=== PATIENT | female | born 1980 | race African-American/Black ===

== ENCOUNTER 2017-03-06 20:48 | Emergency (ER) | payer BC ==
[2017-03-06 20:56] VITALS: BP 110/65; BMI 30.7
[2017-03-06] MEDS ORDERED: ACETAMINOPHEN 325 MG TABLET (FP) PO ONE (21:09)
[2017-03-06] MEDS ORDERED: ACETAMINOPHEN 325 MG TABLET (FP) ONE (21:17)
[2017-03-06 22:12] LABS: URINE APPEARANCE SLCLOUDY; URINE BILIRUBIN NEGATIVE (NEGATIVE); URINE BLOOD NEGATIVE (NEGATIVE); URINE COLOR YELLOW; URINE GLUCOSE (UA) NEGATIVE (NEGATIVE); URINE KETONE NEGATIVE (NEGATIVE); URINE NITRITE POSITIVE (NEGATIVE); URINE UROBILINOGEN 4.0 E.U/dl mg/dL (0.2-1.0)
[2017-03-06 22:16] LABS: URINE LEUK ESTERASE 3+ (NEGATIVE); URINE PROTEIN 1+ (NEGATIVE)
[2017-03-06 22:18] LABS: URINE BACTERIA MODERATE /hpf (NONE SEEN); URINE MUCUS RARE; URINE RBC 7 /hpf (0-3); URINE WBC 117 /hpf (3-5)
--- NOTE | 2017-03-06 22:20 | PDOC ---
History of Present Illness - General Chief Complaint: Cold Symptoms Stated Complaint: DIFFICULTY BREATHING Time Seen by Provider: 03/06/17 21:09 - History of Present Illness Initial Comments: 03/06/17 22:20 CHIEF COMPLAINT: body aches, fever HISTORY OF PRESENT ILLNESS: 36 yo F with no significant PMH presents to [facility] with fever and generalized discomfort. Patient reports urinary frequency for the past 3 days and fever that started yesterday. She denies any burning with urination but does report body aches. PAST MEDICAL HISTORY: Denies past medical history FAMILY HISTORY: Denies SOCIAL HISTORY: Denies tobacco, alcohol, illicit drug use. SURGICAL HISTORY: Denies ALLERGIES: No known drug allergies REVIEW OF SYSTEMS General/Constitutional: Fever since yesterday. Denies weakness, weight change. HEENT: Denies change in vision. Denies ear pain or discharge. Denies sore throat. Cardiovascular: Denies chest pain or shortness of breath. Respiratory: Denies cough, wheezing, or hemoptysis. Gastrointestinal: Denies nausea, vomiting, diarrhea or constipation. Denies rectal bleeding. Genitourinary: Urinary frequency x 3 days. Musculoskeletal: Denies joint or muscle swelling or pain. Denies neck or back pain. Skin: Denies rash or easy bruising. PHYSICAL EXAM General Appearance: Uncomfortable appearing, appropriately dressed. No apparent distress. HEENT: EOMI, PERRLA. No conjunctival pallor. No photophobia, scleral icterus. Respiratory/Chest: Lungs CTAB. Cardiovascular: RRR. S1, S2. Gastrointestinal/Abdominal: Normal bowel sounds. Abdomen soft, non-distended. No tenderness or rebound tenderness. No organomegaly, pulsatile mass, guarding , hernia, hepatomegaly, splenomegaly. Musculoskeletal/Extremities: B/L CVA tenderness. Normal inspection. FROM of all extremities, normal capillary refill. Pelvis Stable. No CVA tenderness. No tenderness to extremities, pedal edema, swelling, erythema or deformity. Integumentary: Appropriate color, dry, warm. No cyanosis, erythema, jaundice or rash Neurologic: traffic control specialist II-XII intact. Fully oriented, alert. Appropriate mood/affect. Motor strength 5/5. No appreciable EOM palsy, facial droop or sensory deficit. Past History - Past Medical History Allergies/Adverse Reactions: Allergies Allergy/AdvReac Type Severity Reaction Status Date / Time No Known Allergies Allergy Verified 03/06/17 20:55 Home Medications: Ambulatory Orders No Home Medications 0 dose .ROUTE UTDICT 05/10/13 Ibuprofen [Motrin -] 600 mg PO TID 03/06/17 Ibuprofen [Motrin -] 600 mg PO TID #21 tablet 03/06/17 Nitrofurantoin Monohyd/M-Cryst [Macrobid -] 100 mg PO BID #20 capsule 03/06/17 CVA: No COPD: No CHF: No DVT: No Dementia: No GI Disorders: No Disorders: No Thyroid Disease: No - Suicide/Smoking/Psychosocial Hx Smoking Status: No Smoking History: Never smoked Have you smoked in the past 12 months: No Number of Cigarettes Smoked Daily: 0 Information on smoking cessation initiated: No Hx Alcohol Use: No Drug/Substance Use Hx: No Substance Use Type: Alcohol *Physical Exam - Vital Signs Last Vital Signs Temp Pulse Resp BP Pulse Ox 100.5 F H 127 H 18 110/65 100 03/06/17 20:52 03/06/17 20:52 03/06/17 20:52 03/06/17 20:52 03/06/17 20:52 ED Treatment Course - Medications Given in the ED: ED Medications Discontinued Medications Generic Name Dose Route Start Last Admin Trade Name Freq PRN Reason Stop Dose Admin Acetaminophen 650 mg 03/06/17 21:09 03/06/17 21:18 Tylenol - PO 03/06/17 21:10 650 mg ONCE ONE Administration Medical Decision Making - Medical Decision Making 03/06/17 23:01 36 yo F with no significant PMH presents to fast track with fever and generalized discomfort. Patient febrile to 100.5F. -flu swab -UA, UCx -Tylenol UA positive for nitrites and 112 WBC. -Macrobid given here in FT Patient repeat temp 99.9F. 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 *DC/Admit/Observation/Transfer Diagnosis at time of Disposition: Urinary tract infection Qualifiers: Urinary tract infection type: site unspecified Hematuria presence: without hematuria Qualified Code(s): N39.0 - Urinary tract infection, site not specified - Discharge Dispostion Disposition: HOME Condition at time of disposition: Stable Admit: No - Prescriptions Prescriptions: Ibuprofen [Motrin -] 600 mg PO TID #21 tablet Nitrofurantoin Monohyd/M-Cryst [Macrobid -] 100 mg PO BID #20 capsule - Referrals Referrals: Lo Hines MD [Primary Care Provider] - - Patient Instructions Printed Discharge Instructions: DI for Urinary Tract Infection (UTI) Additional Instructions: Please take medications as prescribed. You MUST drink LOTS of fluids for hydration. If you develop fever that is unrelieved by Motrin, vomiting, diarrhea , or any new or worsening symptoms, please return to the ER. - Post Discharge Activity
[2017-03-06] MEDS ORDERED: NITROFURANTOIN MACROCRYSTAL 50 MG CAPSULE (FP) ONE (22:33)
[2017-03-06 22:46] VITALS: PULSE 75
[2017-03-06] MEDS ORDERED: NITROFURANTOIN MACROCRYSTAL 50 MG CAPSULE (FP) PO SCH (23:00)
[2017-03-06 23:03] VITALS: TEMP 99.9
[2017-03-07 11:43] LABS: URINE LEUK ESTERASE 1+ (NEGATIVE)
== END 2017-03-06 23:02 | disposition home or self-care (01) ==
LOC: JERFT 20:48
DX: N39.0 Urinary tract infection, site not specified (principal); B96.20 Unspecified Escherichia coli [E. coli] as the cause of diseases classified elsewhere
CPT/HCPCS: 81003; 81015; 87086; 87186; 87804; 99282-25

== ENCOUNTER 2019-05-01 10:17 | Emergency (ER) | payer BC ==
[2019-05-01 10:33] VITALS: BMI 49.1
[2019-05-01] MEDS ORDERED: SODIUM CHLORIDE 1,000 ML IV STA ×2 (11:13→12:33)
[2019-05-01] MEDS ORDERED: ACETAMINOPHEN 1000 MG/100 ML VIAL (NON FORMULARY) IVPB ONE (11:13)
--- NOTE | 2019-05-01 11:40 | PDOC ---
History of Present Illness - General Chief Complaint: Headache Stated Complaint: FEVER/COLD SYMPTOMS Time Seen by Provider: 05/01/19 11:10 History Source: Patient Exam Limitations: No Limitations - History of Present Illness Initial Comments: 05/01/19 12:12 38 yo female pmh colon CA (polyps removed) presents to the ED for 3 days of fevers, body aches, headaches and congestion. Pt states co workers with similar symptoms. Denies SOB, cough, sore throat, ear pain, CP, abdominal pain, changes in bowel or bladder habits. Past History - Past Medical History Allergies/Adverse Reactions: Allergies Allergy/AdvReac Type Severity Reaction Status Date / Time No Known Allergies Allergy Verified 05/01/19 10:26 Home Medications: Ambulatory Orders Rizatriptan Benzoate [Rizatriptan] 10 mg PO ASDIR PRN 05/01/19 levoFLOXacin [Levaquin] 750 mg PO DAILY #5 tab 05/01/19 Cancer: Yes (Colon cancer 01/30) CVA: No COPD: No CHF: No DVT: No Dementia: No GI Disorders: No Disorders: No Thyroid Disease: No - Psycho Social/Smoking Cessation Hx Smoking Status: No Smoking History: Never smoked Have you smoked in the past 12 months: No Number of Cigarettes Smoked Daily: 0 Hx Alcohol Use: No Drug/Substance Use Hx: No Substance Use Type: Alcohol Review of Systems - Review of Systems Constitutional: Yes: See HPI HEENTM: Yes: See HPI Respiratory: Yes: See HPI Cardiac (ROS): Yes: See HPI ABD/GI: Yes: See HPI : Yes: See HPI Musculoskeletal: Yes: See HPI Integumentary: Yes: See HPI Neurological: Yes: See HPI *Physical Exam - Vital Signs Last Vital Signs Temp Pulse Resp BP Pulse Ox 102.6 F H 124 H 18 107/81 100 05/01/19 10:27 05/01/19 10:27 05/01/19 10:27 05/01/19 10:27 05/01/19 10:27 - Physical Exam General Appearance: Yes: Nourished, Appropriately Dressed. No: Apparent Distress HEENT: positive: EOMI Neck: positive: Supple. negative: Carotid bruit Respiratory/Chest: positive: Lungs Clear, Normal Breath Sounds. negative: Respiratory Distress, Accessory Muscle Use, Rapid RR, Crackles, Rales, Rhonchi, Stridor, Wheezing Cardiovascular: positive: Regular Rhythm, S1, S2, Tachycardia. negative: Edema , JVD, Murmur Vascular Pulses: Dorsalis-Pedis (R): 4+, Doralis-Pedis (L): 4+ Gastrointestinal/Abdominal: positive: Flat, Soft. negative: Pulsatile Mass, Protuberent, Distended, Guarding, Rebound, Tenderness Musculoskeletal: positive: CVA Tenderness Extremity: positive: Normal Capillary Refill, Normal Inspection, Normal Range of Motion Integumentary: positive: Normal Color, Dry, Warm Neurologic: positive: Fully Oriented, Alert, Normal Mood/Affect, Normal Response ED Treatment Course - LABORATORY CBC & Chemistry Diagram: 05/01/19 11:45 05/01/19 11:45 Medical Decision Making - Medical Decision Making 05/01/19 12:24 38 yo female pmh colon CA (polyps removed) presents to the ED for 3 days of fevers, body aches, headaches and congestion. Pt states co workers with similar symptoms. Denies SOB, cough, sore throat, ear pain, CP, abdominal pain, changes in bowel or bladder habits. vitals show elevated HR and temp pt clinically has the flu and is out of the treatment window, not a high risk pt fluids and tylenol given and basic labs with UA due to CVA tenderness will reassess Discharge - Discharge Information Problems reviewed: Yes Clinical Impression/Diagnosis: Urinary tract infection Condition: Stable Disposition: HOME - Admission No - Additional Discharge Information Prescriptions: levoFLOXacin [Levaquin] 750 mg PO DAILY #5 tab - Follow up/Referral - Patient Discharge Instructions Patient Printed Discharge Instructions: DI for Kidney Infection, DI for Urinary Tract Infection (UTI) Additional Instructions: please see your primary doctor within the next 48 hours. Take the antibiotic for your UTI 1 time daily for the next 5 days. Continue taking over the counter Tylenol for fevers and make sure to increase your water intake. Return to the ER for new or concerning symptoms including but not limited to: inability to urinate, severe pain, persistent fevers, blood in the urine. Thank you - Post Discharge Activity Work/Back to School Note: Back to Work
[2019-05-01] MEDS ORDERED: ACETAMINOPHEN INJECTION 100 ML IVPB ONE (11:41)
[2019-05-01 12:13] LABS: BASO % 0.3 % (0-2.0); EOS % 0.1 % (0-4.5); HEMATOCRIT 40.6 % (32.4-45.2); HEMOGLOBIN 13.8 GM/dL (10.7-15.3); LYMPH % 8.9 % (8-40); MCH 30.6 pg (25.7-33.7); MCHC 33.9 g/dl (32.0-36.0); MEAN CELL VOLUME 90.1 fl (80-96); MEAN PLT VOLUME 7.8 fl (7.5-11.1); MONO % 7.8 % (3.8-10.2); NEUT % 82.9 % (42.8-82.8); PLATELET COUNT 272 K/MM3 (134-434); RDW 13.8 % (11.6-15.6); WHITE BLOOD COUNT 8.4 K/mm3 (4.0-10.0)
[2019-05-01 12:18] LABS: EPI CELLS 2.7 /HPF (0-5/HPF); HYALINE CASTS 15 /lpf (0-8); PH,URINE >= 9.0 (5.0-8.0); URINE APPEARANCE CLEAR; URINE BACTERIA 1685.8 /hpf (NEGATIVE); URINE BILIRUBIN NEGATIVE (NEGATIVE); URINE COLOR YELLOW; URINE GLUCOSE (UA) NEGATIVE (NEGATIVE); URINE KETONE NEGATIVE (NEGATIVE); URINE LEUK ESTERASE 1+ (NEGATIVE); URINE NITRITE POSITIVE (NEGATIVE); URINE PROTEIN 1+ (NEGATIVE); URINE RBC 9 /hpf (0-4); URINE UROBILINOGEN 4.0 E.U/dl mg/dL (0.2-1.0); URINE WBC 41 /hpf (0-5)
--- NOTE | 2019-05-01 12:22 | PDOC ---
Documentation entered by Quincy Olson SCRIBE, acting as scribe for Quang Suarez MD. Quang Suarez MD: This documentation has been prepared by the Wesley jean Xhesika, SCRIBE, under my direction and personally reviewed by me in its entirety. I confirm that the documentation accurately reflects all work, treatment, procedures, and medical decision making performed by me. Attending Attestation - Resident Resident Name: LivmatRofl - ED Attending Attestation I have performed the following: I have examined & evaluated the patient, The case was reviewed & discussed with the resident, I agree w/resident's findings & plan, Exceptions are as noted - HPI HPI: 05/05/19 10:16 see above - Physicial Exam PE: 05/05/19 10:17 see above - Medical Decision Making 05/01/19 11:43 38y F hx of possible colon ca, presents with several days of fever, headache, body aches, and mild nasal tuffiness. Patient denies any other symptoms including sore throat, cough, shortness of breath, chest pain, abdominal pain, dysuria, diarrhea. 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 exam: GENERAL: The patient is awake, alert, and fully oriented, Nontoxic - in no acute distress. HEAD: Normocephalic, atraumatic. EYES: extraocular movements intact, sclera anicteric, conjunctiva clear. ENT: Normal voice, Moist mucous membranes. NECK: Normal range of motion, supple, LUNGS: Breath sounds equal, clear to auscultation bilaterally. No wheezes, no rhonchi, no rales. HEART: tachycadic, normal S1 and S2 without murmur, rub or gallop. ABDOMEN: Soft, nontender, No guarding, no rebound. mild L cva tenderness EXTREMITIES: Normal range of motion, no edema. NEUROLOGICAL: No facial assymetry, Normal speech, PSYCH: Normal mood, normal affect. SKIN: hot to touch, Dry, normal turgor, Differential for the patient's symptoms includes possible influenza versus UTI/ pyelonephritis Will obtain UA we will give the patient antipyretic, fluids 05/01/19 12:26 pts UA suggestive of UTI labs otherwise unremarkable will treat pt for pyelonepritis w abx anticipate outpatient management of her infection with return precautions
[2019-05-01 12:41] LABS: ALBUMIN 3.9 g/dl (3.4-5.0); BILIRUBIN,TOTAL 1.1 mg/dL (0.2-1); BLOOD UREA NITROGEN 13.4 mg/dL (7-18); CALCIUM 9.5 mg/dL (8.5-10.1); POTASSIUM 4.3 mmol/L (3.5-5.1); TOT PROT 7.9 g/dl (6.4-8.2)
[2019-05-01 12:48] VITALS: BP 125/80
[2019-05-01 14:00] VITALS: PULSE 96; TEMP 98.6
== END 2019-05-01 14:00 | disposition home or self-care (01) ==
LOC: JER 10:17
PROC: 3E0337Z Introduction of Electrolytic and Water Balance Substance into Peripheral Vein, Percutaneous Approach (ICD-10-PCS; principal; 2019-05-01)
PROC: 3E033NZ Introduction of Analgesics, Hypnotics, Sedatives into Peripheral Vein, Percutaneous Approach (ICD-10-PCS; 2019-05-01)
DX: N39.0 Urinary tract infection, site not specified (principal); N12 Tubulo-interstitial nephritis, not specified as acute or chronic; Z85.038 Personal history of other malignant neoplasm of large intestine
CPT/HCPCS: 36415; 80053; 81003; 84703; 85025; 87086; 87186; 99284-25; J0131; J7030

== ENCOUNTER 2021-03-09 06:42 | Emergency (ER) | payer BC ==
[2021-03-09 07:41] VITALS: BP 127/97; PULSE 86; TEMP 98.1; BMI 34.1
[2021-03-10 10:07] LABS: SARS-CoV-2 NAA Detected (Not Detected)
== END 2021-03-09 11:29 | disposition home or self-care (01) ==
LOC: JER 06:42
DX: U07.1 COVID-19 (principal)
CPT/HCPCS: 99283-25; C9803; U0003; U0005